=== PATIENT | female | born 1990 | race Caucasian/White ===

== ENCOUNTER 2023-06-13 13:02 | Emergency (ER) | payer MEDICAID, OTHER ==
[~2023-06-13] VITALS: Ht 167.6 cm; Wt 80.0 kg
[2023-06-13 13:40] VITALS: BP 115/59; O2SAT 99
[2023-06-13] MEDS ORDERED: DIPHENHYDRAMINE 50MG/ML VIAL IM ONE (16:00)
[2023-06-13] MEDS ORDERED: LORAZEPAM 1MG TABLET PO ONE (16:00)
[2023-06-13] MEDS ORDERED: BENZ1TAB78 MT (16:02)
[2023-06-13 17:08] VITALS: PULSE 103; RESP 18; TEMP 98.2
== END 2023-06-13 17:10 | disposition home or self-care (01) ==
LOC: ER 13:27
DX: H51.8 Other specified disorders of binocular movement (principal)
CPT/HCPCS: 81025; 96372; 99283; J1200; Z7610 ×2

== ENCOUNTER 2024-12-12 19:42 | Emergency (ER) | payer MEDICAID ==
[~2024-12-12] VITALS: Ht 162.6 cm; Wt 65.0 kg
[~2024-12-12 19:42] MED LIST: BENZ1TAB78 MT
[2024-12-12 20:19] VITALS: BP 142/85; TEMP 37; O2SAT 95
[2024-12-12 20:21] VITALS: PULSE 114; RESP 20; O2SAT 99
== END 2024-12-12 22:42 | disposition left against medical advice (07) ==
LOC: ER 19:42
DX: R13.19 Other dysphagia (principal); Z53.21 Procedure and treatment not carried out due to patient leaving prior to being seen by health care provider

== ENCOUNTER 2024-12-13 10:07 | Emergency (ER) | payer MEDICAID ==
[~2024-12-13] VITALS: Ht 160 cm; Wt 69.0 kg
[2024-12-13 10:14] VITALS: O2SAT 100
[2024-12-13] MEDS: ACETAMINOPHEN 325MG TABLET PO ONE (10:42)
[2024-12-13] MEDS: VISCOUS LIDOCAINE 2% 15 ML UDC PO STA (10:42)
[2024-12-13 11:39] VITALS: BP 91/62; PULSE 110; RESP 16; TEMP 36.9; O2SAT 99
== END 2024-12-13 11:42 | disposition home or self-care (01) ==
LOC: ER 10:07
DX: R07.0 Pain in throat (principal)
CPT/HCPCS: 99283

== ENCOUNTER 2025-04-05 22:45 | Emergency (ER) | payer MEDICAID ==
[~2025-04-05] VITALS: Ht 162.6 cm; Wt 80.0 kg
[2025-04-05 22:59] VITALS: O2SAT 97
[2025-04-05] MEDS ORDERED: KETOROLAC 15MG/ML VIAL IV ONE (23:15)
[2025-04-06 00:08] LABS: BASOPHILS % 0.7 % (0.0-2.0); EOSINOPHILS % 2.0 % (0.0-5.0); HEMATOCRIT. 40.6 % (36.0-48.0); HEMOGLOBIN. 13.3 g/dL (12.0-16.0); LYMPHOCYTES % 26.8 % (20.0-50.0); MEAN PLATELET VOLUME 10.0 fl (7.4-10.4); MONOCYTES % 8.8 % (2.0-8.0); NEUTROPHILS % 61.7 % (40.0-76.0); PLATELET 278 x1000/uL (130-400); RED BLOOD CELL COUNT 4.45 mill/uL (4.2-5.4); RED CELL DISTRIBUTION WIDTH 13.2 % (11.6-14.6)
[2025-04-06 00:21] LABS: HCG SCREEN NEGATIVE
[2025-04-06 00:22] LABS: CREATININE 0.8 mg/dL (0.6-1.0); UREA NITROGEN BLOOD 15 mg/dL (9-23)
[2025-04-06] MEDS ORDERED: POTASSIUM CHLORIDE 20MEQ/PACKET PO ONE (00:30)
[2025-04-06] MEDS: KETOROLAC 15MG/ML VIAL IV NR (01:20)
[2025-04-06] MEDS: POTASSIUM CHLORIDE 20MEQ/PACKET PO NR (01:21)
[2025-04-06 03:07] VITALS: BP 141/102; PULSE 91; RESP 14; TEMP 36.8; O2SAT 99
[2025-04-06] MEDS ORDERED: IOHEXOL-350 100 ML BOTTLE ONE (07:05)
== END 2025-04-06 03:07 | disposition home or self-care (01) ==
LOC: ER 22:45
DX: S10.11XA Abrasion of throat, initial encounter (principal); E87.6 Hypokalemia; X58.XXXA Exposure to other specified factors, initial encounter; Y93.89 Activity, other specified; Y92.89 Other specified places as the place of occurrence of the external cause; Y99.8 Other external cause status
CPT/HCPCS: 80048; 84703; 85025; 36415; 99285; 70498; 96374; Q9967; J1885; Z7610